=== PATIENT | male | born 1940 | race Caucasian/White ===

== ENCOUNTER 2021-03-15 17:43 | Inpatient (IN) | payer OTHER, MEDICARE ==
[2021-03-15 19:33] LABS: Albumin 4.9 g/dL (3.5-5.0); Calcium 10.4 mg/dL (8.4-10.2); Potassium 4.6 mmol/L (3.5-5.1); Total Bilirubin 0.4 mg/dL (0.2-1.3); Total Protein 7.9 g/dL (6.3-8.2)
[2021-03-15 19:36] LABS: Basophils # (A) 0.1 k/uL (0-0.2); Basophils % (A) 1 %; Eosinophils # (A) 0.1 k/uL (0-0.7); Eosinophils % (A) 1 %; HCT 45.5 % (39.0-53.0); HGB 15.1 gm/dL (13.0-17.5); Lymphocytes # (A) 1.3 k/uL (1.0-4.8); Lymphocytes % (A) 17 %; MCH 30.2 pg (25.0-35.0); MCHC 33.3 g/dL (31.0-37.0); MCV 90.9 fL (80.0-100.0); Mean Platelet Volume 7.2; Monocytes # (A) 0.5 k/uL (0-1.0); Monocytes % (A) 7 %; Neutrophils # (A) 5.5 k/uL (1.3-7.7); Neutrophils % (A) 72 %; Platelet Count 290 k/uL (150-450); RDW 13.5 % (11.5-15.5); WBC 7.7 k/uL (3.8-10.6)
[2021-03-15 19:58] LABS: Appearance,Urine Clear (Clear); Bilirubin,Urine Negative (Negative); Blood,Urine Negative (Negative); Color,Urine Yellow; Glucose,Urine (UA) Negative (Negative); Ketones,Urine Negative (Negative); Leukocyte Esterase,Urine Negative (Negative); Nitrite,Urine Negative (Negative); Protein,Urine Trace (Negative); Specific Gravity,Urine 1.011 (1.001-1.035); Urobilinogen,Urine <2.0 mg/dL (<2.0)
[2021-03-15 20:14] LABS: Amphetamine Screen,Urine Not Detected (NotDetected); Barbiturate Screen,Urine Not Detected (NotDetected); Benzodiazepines Screen,Urine Not Detected (NotDetected); Cocaine Screen,Urine Not Detected (NotDetected); Methadone Screen, Urine Not Detected (NotDetected); Opiate Screen,Urine Not Detected (NotDetected); Oxycodone Screen, Urine Not Detected (NotDetected); Phencyclidine Screen,Urine Not Detected (NotDetected); Tricyclic Antidepressant,Urine Not Detected (NotDetected); Urn Cannabinoid Scrn Not Detected (NotDetected)
[2021-03-15] MEDS ORDERED: NALOXONE 0.4 MG/ML 1 ML VIAL IV PRN (21:09)
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
[2021-03-15] MEDS: levETIRAcetam 500 MG TAB PO SCH (21:44)
[2021-03-15] MEDS ORDERED: GABAPENTIN 100 MG CAP PO PRN (23:01)
[2021-03-16] MEDS: levETIRAcetam 500 MG TAB PO SCH ×4 (01:49→21:24)
[2021-03-16] MEDS: PANTOPRAZOLE 40 MG TABLET PO SCH ×2 (07:40→21:24)
[2021-03-16] MEDS: FAMOTIDINE 20 MG TAB PO SCH (07:40)
[2021-03-16] MEDS: FINASTERIDE 5 MG TAB PO SCH (07:40)
[2021-03-16] MEDS: ASPIRIN 81 MG PO SCH (07:40)
[2021-03-16] MEDS ORDERED: NON FORMULARY DRUG (Omega-3 Fatty Acids/Fish Oil [Fish Oil 1,000 Mg Softgel] 1 EACH Capsul PO SCH (09:00)
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
[2021-03-16] MEDS: TAMSULOSIN 0.4 MG CAP.ER.24H PO SCH (21:24)
[2021-03-16] MEDS: ACETAMINOPHEN TAB 500 MG TAB PO PRN (21:24)
[2021-03-16] MEDS: DOCUSATE 100 MG CAP PO PRN (21:25)
[2021-03-17] MEDS: levETIRAcetam 500 MG TAB PO SCH ×3 (02:48→20:25)
[2021-03-17] MEDS: ASPIRIN 81 MG PO SCH (07:24)
[2021-03-17] MEDS: PANTOPRAZOLE 40 MG TABLET PO SCH ×2 (07:24→20:24)
[2021-03-17] MEDS: FINASTERIDE 5 MG TAB PO SCH (07:24)
[2021-03-17] MEDS: FAMOTIDINE 20 MG TAB PO SCH (07:24)
[2021-03-17] MEDS: DOCUSATE 100 MG CAP PO PRN ×2 (08:11→20:24)
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
[2021-03-17] MEDS: ACETAMINOPHEN TAB 500 MG TAB PO PRN (20:23)
[2021-03-17] MEDS: TAMSULOSIN 0.4 MG CAP.ER.24H PO SCH (20:25)
[2021-03-18] MEDS: PANTOPRAZOLE 40 MG TABLET PO SCH ×2 (08:36→20:15)
[2021-03-18] MEDS: FAMOTIDINE 20 MG TAB PO SCH (08:36)
[2021-03-18] MEDS: FINASTERIDE 5 MG TAB PO SCH (08:36)
[2021-03-18] MEDS: levETIRAcetam 500 MG TAB PO SCH ×2 (08:36→20:14)
[2021-03-18] MEDS: ASPIRIN 81 MG PO SCH (08:36)
[2021-03-18] MEDS: DOCUSATE 100 MG CAP PO PRN (08:44)
[2021-03-18] MEDS: TAMSULOSIN 0.4 MG CAP.ER.24H PO SCH (20:14)
[2021-03-19] MEDS: PANTOPRAZOLE 40 MG TABLET PO SCH ×2 (09:02→20:59)
[2021-03-19] MEDS: levETIRAcetam 500 MG TAB PO SCH ×2 (09:03→20:59)
[2021-03-19] MEDS: FINASTERIDE 5 MG TAB PO SCH (09:03)
[2021-03-19] MEDS: FAMOTIDINE 20 MG TAB PO SCH (09:03)
[2021-03-19] MEDS: ASPIRIN 81 MG PO SCH (09:03)
[2021-03-19] MEDS: TAMSULOSIN 0.4 MG CAP.ER.24H PO SCH (20:59)
[2021-03-20] MEDS: FAMOTIDINE 20 MG TAB PO SCH (07:44)
[2021-03-20] MEDS: FINASTERIDE 5 MG TAB PO SCH (07:44)
[2021-03-20] MEDS: ASPIRIN 81 MG PO SCH (07:44)
[2021-03-20] MEDS: DOCUSATE 100 MG CAP PO PRN (07:44)
[2021-03-20] MEDS: levETIRAcetam 500 MG TAB PO SCH (07:45)
[2021-03-20] MEDS: PANTOPRAZOLE 40 MG TABLET PO SCH (07:45)
[2021-03-20 12:21] VITALS: BP 134/68; PULSE 65; RESP 16; TEMP 97.6
== END 2021-03-20 16:39 | disposition home health service (06) | DRG 882 ==
LOC: EC 17:43 → 5NMEDONC 21:09 → OBSVTOIN 03-20 07:28
PROVIDERS: ADMIT Internal Medicine; ATTEND Internal Medicine
DX: F43.20 Adjustment disorder, unspecified (principal); F03.91 Unspecified dementia, unspecified severity, with behavioral disturbance; K21.9 Gastro-esophageal reflux disease without esophagitis; N40.0 Benign prostatic hyperplasia without lower urinary tract symptoms; M51.36 Other intervertebral disc degeneration, lumbar region; G62.9 Polyneuropathy, unspecified; G40.909 Epilepsy, unspecified, not intractable, without status epilepticus; Z79.899 Other long term (current) drug therapy; Z79.82 Long term (current) use of aspirin
CPT/HCPCS: 36415; 80053; 80306; 81003; 85025; 99285